=== PATIENT | female | born 1960 | race Caucasian/White ===

== ENCOUNTER 2019-02-07 14:41 | Emergency (ER) | payer OTHER ==
[2019-02-07] MEDS ORDERED: IV NORMAL SALINE 1,000ML 1,000 ML IV SCH (15:02)
[2019-02-07] MEDS ORDERED: ONDANSETRON PF 4 MG/2 ML VIAL. IVP ONE (15:15)
[2019-02-07] MEDS ORDERED: KETOROLAC 30 MG/ML VIAL. IVP ONE (15:15)
[2019-02-07] MEDS ORDERED: HYDROmorphone PF 1 MG/ML DISP.SYRIN IV/SQ PRN (15:15)
[2019-02-07 15:18] LABS: BASO % 1 % (0-3); EOS # 0.1 x10^3/uL (0.0-0.7); EOS % 1 % (0-3); HEMATOCRIT 39.3 % (36.0-47.0); HEMOGLOBIN 13.3 g/dL (12.0-15.5); LYMPH # 2.6 x10^3/uL (1.0-4.8); LYMPH % 28 % (24-48); MEAN CORPUSCULAR HEMOGLOBIN 31 pg (25-35); MEAN CORPUSCULAR HGB CONC 34 g/dL (31-37); MEAN CORPUSCULAR VOLUME 91 fL (79-100); MONO # 0.5 x10^3/uL (0.0-1.1); MONO % 6 % (0-9); NEUT % 65 % (31-73); PLATELET COUNT 307 x10^3/uL (140-400); RED CELL DISTRIBUTION WIDTH 12.4 % (11.5-14.5); WHITE BLOOD COUNT 9.2 x10^3/uL (4.0-11.0)
[2019-02-07 15:33] LABS: ALBUMIN 3.6 g/dL (3.4-5.0); ALBUMIN/GLOBULIN RATIO 0.9 (1.0-1.7); CALCIUM 8.8 mg/dL (8.5-10.1); CREATININE 0.8 mg/dL (0.6-1.0); GFR 73.9; POTASSIUM 3.7 mmol/L (3.5-5.1); TOTAL BILIRUBIN 0.3 mg/dL (0.2-1.0); TOTAL PROTEIN 7.4 g/dL (6.4-8.2)
--- NOTE | 2019-02-07 16:12 | RAD ---
CT ABDOMEN PELVIS WO CONTRAST Indication: Flank pain. Exposure: One or more of the following individualized dose reduction techniques were utilized for this examination: 1. Automated exposure control 2. Adjustment of the mA and/or kV according to patient size 3. Use of iterative reconstruction technique. Comparison: None are available. Technique: No intravenous contrast given. No oral contrast per request. Findings: Evaluation of solid viscera, bowel and vasculature is compromised by the noncontrast technique. Somewhat nodular opacity in the left lung base along the left heart border, measures 9 mm in diameter, series 2, image 6. There has apparently been a right mastectomy. Low-density lesion in the liver measures 15 mm in diameter and 11 Hounsfield units, likely a cyst or other benign etiology. Spleen is not enlarged. The pancreas appears unremarkable. No evidence of adrenal mass. Nonobstructive calculus in the upper pole the right kidney measures 7 mm. Mildly obstructive calculus in the distal right ureter measures 4 mm, mild proximal hydronephrosis and ureteric dilatation. No evidence of left-sided hydronephrosis or calculus. Small low-density in the lower pole the left kidney measures 9 Hounsfield units, most likely a parapelvic cyst. No significant perinephric fatty stranding. No calcified gallstone. Aorta is mildly calcified. No significant lymph node enlargement. No significant small bowel distention. Colonic diverticulosis. No evidence of acute colitis. The appendix is visualized, appears slightly prominent or thick-walled, up to 9 mm thickness without gas and limited. However, no periappendiceal inflammatory type changes. No evidence of pneumoperitoneum or ascites. Urinary bladder demonstrates no significant wall thickening. No evidence of pelvic mass. Degenerative changes of the spine. No evidence of aggressive bone destruction. IMPRESSION: 1. Mildly obstructive 4 mm calculus in the distal right ureter. Additional nonobstructive intrarenal right calculus. 2. 9 mm nodule in the left lung base. This is adjacent to the left heart border, could be pulmonary. As per revised Fleischner guidelines, consider follow-up CT chest in 3 months or PET/CT scan. 3. Small hepatic lesion, most likely a cyst or other benign etiology. 4. The appendix demonstrates slight wall thickening but not definitely abnormal. Given the lack of any adjacent inflammatory stranding, this is probably within normal limits for the patient, but if of concern, could obtain short-term follow-up CT scan. Electronically signed by: Porter Schaffer MD (02/07/2019 4:08 PM) [facility]
--- NOTE | 2019-02-07 16:54 | PHYS DOC ---
Past History Past Medical History: Cancer, Kidney Stones, Other Additional Past Medical Histor: benign brain tumor; melanoma Past Surgical History: Hysterectomy, Oophorectomy, Other Additional Past Surgical Histo: right mastectomy; crainotomy; mediastoscopy; wrist bx Alcohol Use: Occasionally Drug Use: None Adult General Chief Complaint Chief Complaint: FLANK PAIN [facility] HPI Patient is a 58-year-old female who presents with complaint of right-sided flank pain that started a few hours prior to her arrival. She states that she has had no episode of nausea and vomiting. Patient does indicate that she has had a history of kidney stones in the past but they're typically on the left-hand side. She states that this is very similar to prior episodes however. She rates pain at an 8-9 out of 10. She denies any fever. She denies any diarrhea. Patient states that nothing seems to worsen her symptoms.[] Review of Systems Review of Systems Constitutional: Denies fever or chills [] Respiratory: Denies cough or shortness of breath [] Cardiovascular: No additional information not addressed in HPI [] GI: Positive right sided flank/abdominal pain with nausea and vomiting. Denies diarrhea [] : Denies dysuria or hematuria [] Musculoskeletal: Denies back pain or joint pain [] Integument: Denies rash or skin lesions [] Neurologic: Denies headache, focal weakness or sensory changes [] All other systems were reviewed and found to be within normal limits, except as documented in this note. Current Medications Current Medications Current Medications Medications (Trade) Dose Ordered Sig/Compa Start Time Stop Time Status Last Admin Dose Admin Hydromorphone HCl (Dilaudid) 1 mg PRN Q15MIN PRN 02/07/19 15:15 02/08/19 15:14 02/07/19 15:15 1 MG Ketorolac Tromethamine (Toradol 30mg Vial) 30 mg 1X ONCE 02/07/19 15:15 02/07/19 15:16 DC 02/07/19 15:13 30 MG Ondansetron HCl (Zofran) 4 mg 1X ONCE 02/07/19 15:15 02/07/19 15:16 DC 02/07/19 15:13 4 MG Sodium Chloride 1,000 ml @ 1,000 mls/hr Q1H 02/07/19 15:02 02/07/19 16:01 DC 02/07/19 15:02 1,000 MLS/HR Allergies Allergies Allergies Coded Allergies Type Severity Reaction Last Updated Verified codeine Allergy Unknown 02/07/19 Yes Physical Exam Physical Exam Constitutional: Well developed, well nourished, in moderate distress, non-toxic appearance. [] HENT: Normocephalic, atraumatic, bilateral external ears normal, oropharynx moist, no oral exudates, nose normal. [] Eyes: PERRLA, EOMI, conjunctiva normal, no discharge. [] Neck: Normal range of motion, no tenderness, supple, no stridor. [] Cardiovascular: Regular rate and rhythm[] Lungs & Thorax: Bilateral breath sounds clear to auscultation [] Abdomen: Bowel sounds normal, soft, no tenderness. [] Skin: Warm, dry, no erythema, no rash. [] Extremities: No tenderness, no cyanosis, no clubbing, ROM intact, no edema. [] Neurologic: Alert and oriented X 3, no focal deficits noted. [] Current Patient Data Vital Signs Vital Signs Date Time Temp Pulse Resp B/P (MAP) Pulse Ox O2 Delivery O2 Flow Rate FiO2 02/07/19 15:54 16 97 02/07/19 15:53 89 139/96 (110) Room Air 02/07/19 14:45 97.8 Lab Results Laboratory Tests Test 02/07/19 15:05 White Blood Count 9.2 x10^3/uL (4.0-11.0) Red Blood Count 4.30 x10^6/uL (3.50-5.40) Hemoglobin 13.3 g/dL (12.0-15.5) Hematocrit 39.3 % (36.0-47.0) Mean Corpuscular Volume 91 fL (79-100) Mean Corpuscular Hemoglobin 31 pg (25-35) Mean Corpuscular Hemoglobin Concent 34 g/dL (31-37) Red Cell Distribution Width 12.4 % (11.5-14.5) Platelet Count 307 x10^3/uL (140-400) Neutrophils (%) (Auto) 65 % (31-73) Lymphocytes (%) (Auto) 28 % (24-48) Monocytes (%) (Auto) 6 % (0-9) Eosinophils (%) (Auto) 1 % (0-3) Basophils (%) (Auto) 1 % (0-3) Neutrophils # (Auto) 6.0 x10^3uL (1.8-7.7) Lymphocytes # (Auto) 2.6 x10^3/uL (1.0-4.8) Monocytes # (Auto) 0.5 x10^3/uL (0.0-1.1) Eosinophils # (Auto) 0.1 x10^3/uL (0.0-0.7) Basophils # (Auto) 0.0 x10^3/uL (0.0-0.2) Sodium Level 142 mmol/L (136-145) Potassium Level 3.7 mmol/L (3.5-5.1) Chloride Level 105 mmol/L (98-107) Carbon Dioxide Level 25 mmol/L (21-32) Anion Gap 12 (6-14) Blood Urea Nitrogen 13 mg/dL (7-20) Creatinine 0.8 mg/dL (0.6-1.0) Estimated GFR (Cockcroft-Gault) 73.9 BUN/Creatinine Ratio 16 (6-20) Glucose Level 127 mg/dL (70-99) H Calcium Level 8.8 mg/dL (8.5-10.1) Total Bilirubin 0.3 mg/dL (0.2-1.0) Aspartate Amino Transferase (AST) 24 U/L (15-37) Alanine Aminotransferase (ALT) 28 U/L (14-59) Alkaline Phosphatase 86 U/L (46-116) Total Protein 7.4 g/dL (6.4-8.2) Albumin 3.6 g/dL (3.4-5.0) Albumin/Globulin Ratio 0.9 (1.0-1.7) L Lipase 110 U/L (73-393) EKG EKG [] Radiology/Procedures Radiology/Procedures [] Impressions: PROCEDURE: CT ABDOMEN PELVIS WO CONTRAST CT ABDOMEN PELVIS WO CONTRAST Indication: Flank pain. Exposure: One or more of the following individualized dose reduction techniques were utilized for this examination: 1. Automated exposure control 2. Adjustment of the mA and/or kV according to patient size 3. Use of iterative reconstruction technique. Comparison: None are available. Technique: No intravenous contrast given. No oral contrast per request. Findings: Evaluation of solid viscera, bowel and vasculature is compromised by the noncontrast technique. Somewhat nodular opacity in the left lung base along the left heart border, measures 9 mm in diameter, series 2, image 6. There has apparently been a right mastectomy. Low-density lesion in the liver measures 15 mm in diameter and 11 Hounsfield units, likely a cyst or other benign etiology. Spleen is not enlarged. The pancreas appears unremarkable. No evidence of adrenal mass. Nonobstructive calculus in the upper pole the right kidney measures 7 mm. Mildly obstructive calculus in the distal right ureter measures 4 mm, mild proximal hydronephrosis and ureteric dilatation. No evidence of left-sided hydronephrosis or calculus. Small low-density in the lower pole the left kidney measures 9 Hounsfield units, most likely a parapelvic cyst. No significant perinephric fatty stranding. No calcified gallstone. Aorta is mildly calcified. No significant lymph node enlargement. No significant small bowel distention. Colonic diverticulosis. No evidence of acute colitis. The appendix is visualized, appears slightly prominent or thick-walled, up to 9 mm thickness without gas and limited. However, no periappendiceal inflammatory type changes. No evidence of pneumoperitoneum or ascites. Urinary bladder demonstrates no significant wall thickening. No evidence of pelvic mass. Degenerative changes of the spine. No evidence of aggressive bone destruction. IMPRESSION: 1. Mildly obstructive 4 mm calculus in the distal right ureter. Additional nonobstructive intrarenal right calculus. 2. 9 mm nodule in the left lung base. This is adjacent to the left heart border, could be pulmonary. As per revised Fleischner guidelines, consider follow-up CT chest in 3 months or PET/CT scan. 3. Small hepatic lesion, most likely a cyst or other benign etiology. 4. The appendix demonstrates slight wall thickening but not definitely abnormal. Given the lack of any adjacent inflammatory stranding, this is probably within normal limits for the patient, but if of concern, could obtain short-term follow-up CT scan. Electronically signed by: Porter Schaffer MD (02/07/2019 4:08 PM) [facility] DICTATED AND SIGNED BY: PORTER SCHAFFER MD DATE: 02/07/19 8948 CC: BOO CARDOZO Jr., DO; VERNON SHELL DO, MPH ~ Course & Med Decision Making Course & Med Decision Making Pertinent Labs and Imaging studies reviewed. (See chart for details) [] Dragon Disclaimer Dragon Disclaimer This electronic medical record was generated, in whole or in part, using a voice recognition dictation system. Departure Departure: Impression: Primary Impression: Ureterolithiasis Disposition: 01 HOME/RESIDENCE PRIOR TO ADM Condition: STABLE Referrals: VERNON SHELL DO, MPH (PCP) Patient Instructions: Kidney Stones Scripts Ondansetron (ONDANSETRON ODT) 4 Mg Tab.rapdis 1 TAB PO PRN Q6-8HRS PRN for NAUSEA, #12 TAB Prov: BOO CARDOZO Jr. DO 02/07/19 Ketorolac Tromethamine (KETOROLAC TROMETHAMINE) 10 Mg Tablet 1 TAB PO PRN Q6HRS PRN for PAIN, #20 TAB Prov: BOO CARDOZO Jr., DO 02/07/19 Oxycodone Hcl/Acetaminophen (PERCOCET 10-325 MG TABLET ) 1 Each Tablet 1 TAB PO PRN QID PRN for PAIN MDD 4 Tablet(s), #15 TAB 0 Refills Prov: BOO CARDOZO Jr., DO 02/07/19 BOO CARDOZO Jr., DO Feb 07, 2019 16:54
[2019-02-07] MEDS ORDERED: ONDA4TAB12 PO (18:28)
[2019-02-07] MEDS ORDERED: OXYC1TAB22 PO (18:28)
[2019-02-07] MEDS ORDERED: KETO10TA PO (18:28)
[2019-02-07] MEDS ORDERED: TAMSULOSIN 0.4 MG CAP.ER.24H. PO ONE (18:30)
[2019-02-07 18:35] VITALS: BP 156/98
[2019-02-07 18:39] LABS: BILIRUBIN,URINE NEG (NEG); CLARITY,URINE HAZY; COLOR,URINE YELLOW; GLUCOSE,URINE NEG (NEG); UROBILINOGEN,URINE 0.2 mg/dL (0.2 mg/dL)
[2019-02-07 18:40] LABS: BACTERIA,URINE FEW /HPF (0-FEW); HYALINE CASTS, URINE FEW /HPF; NITRITE,URINE NEG (NEG); RBC,URINE >40 /HPF (0-2); SQUAMOUS EPITHELIAL CELL,UR FEW /LPF; WBC,URINE OCC /HPF (0-4)
== END 2019-02-07 20:20 | disposition home or self-care (01) ==
LOC: ER 14:41
DX: N13.2 Hydronephrosis with renal and ureteral calculous obstruction (principal); R11.2 Nausea with vomiting, unspecified; Z87.440 Personal history of urinary (tract) infections; Z88.5 Allergy status to narcotic agent
CPT/HCPCS: 36415; 74176; 80053; 81001; 83690; 85025; 96361; 96374; 96375; 99285; J1170; J1885; J2405; J7030

== ENCOUNTER → 2019-05-04 | Outpatient (CLI) | payer OTHER ==
[~2019-05-04] MED LIST: KETO10TA PO; ONDA4TAB12 PO; OXYC1TAB22 PO
--- NOTE | 2019-05-05 09:52 | RAD ---
Examination: CT CHEST WO CONTRAST History: Lung nodule Comparison/Correlation: None Findings: Axial images of the chest were obtained without contrast. Sagittal and coronal reformatted images were provided. Right mastectomy noted. Multiple superior mediastinal lymph nodes are present especially in the right paratracheal region and in the prevascular space. Lymph nodes also evident along the left lateral aspect of the aortic arch and precarinal region. There is also noted about the left main bronchus proximally. Subcarinal lymph node measures up to 1.5 cm in short axis diameter with minimal calcification within it. Right hilar calcified lymph nodes are present. No infiltrate or pleural effusion. Minimal discoid atelectasis at the lung bases noted. No pulmonary nodule or mass. The left hepatic dome, there is a 1.4 cm diameter hepatic cyst. Bony structures unremarkable. Impression: Multiple superior mediastinal lymph nodes are present. These are not enlarged however. Correlate with prior exams assess stability. Correlate for underlying reactive/inflammatory or other processes. Some of these have lymph nodes and may represent old granulomatous disease or other previous inflammatory process. PQRS Compliance Statement: One or more of the following individualized dose reduction techniques were utilized for this examination: 1. Automated exposure control 2. Adjustment of the mA and/or kV according to patient size 3. Use of iterative reconstruction technique Electronically signed by: Colby Deal MD (05/05/2019 9:49 AM) [facility]
== END | disposition home or self-care (01) ==
LOC: CT 10:52
DX: J98.11 Atelectasis (principal); R91.1 Solitary pulmonary nodule; K76.89 Other specified diseases of liver
CPT/HCPCS: 71250

== ENCOUNTER 2020-08-02 17:14 | Emergency (ER) | payer OTHER ==
[~2020-08-02] VITALS: Ht 162.6 cm; Wt 104.9 kg
[2020-08-02] MEDS ORDERED: ONDANSETRON PF 4 MG/2 ML VIAL. ONE (17:59)
[2020-08-02] MEDS ORDERED: ONDANSETRON PF 4 MG/2 ML VIAL. IVP ONE (18:00)
[2020-08-02] MEDS ORDERED: KETOROLAC 30 MG/ML VIAL. IVP ONE (18:00)
[2020-08-02] MEDS ORDERED: IV NORMAL SALINE 1,000ML 1,000 ML IV ONE (18:00)
--- NOTE | 2020-08-02 18:32 | RAD ---
Exam: CT of abdomen and pelvis without contrast INDICATION: Acute right-sided CVA and flank pain TECHNIQUE: Sequential axial images through the abdomen and pelvis obtained without IV contrast. Sagit sandra and coronal reformatted images were reconstructed from the axial data and reviewed. Exposure: One or more of the following in the visualized dose reduction techniques were utilized for this examination: 1. Automated exposure control 2. Adjustment of the MA and/or KV according to patient size 3. Use of iterative of reconstructive technique Comparisons: 02/07/2019 FINDINGS: Heart size is normal. No pericardial effusion. Strandy opacities at dependent portion lungs likely re presenting atelectasis. No pleural effusion. Evaluation of solid organs limited secondary to noncontrast technique. Liver, spleen, pancreas, gallbladder and adrenals are unremarkable. There is mild to moderate right-sided hydronephrosis and hydroureter with a 7 mm calculus at the dist al right ureter. No other ureteral or renal calculi are identified. Bladder is decompressed not well evaluated. Uterus is absent. No abnormal adnexal mass. Diverticulosis noted in the sigmoid colon without evidence of acute diverticulitis. Small bowel is un remarkable. Appendix is normal. No free intra-abdominal air or fluid. No obstruction. Abdominal aorta has a normal course and caliber. No enlarged intra-abdominal lymph nodes are identified. No suspicious osseous lesions or acute fractures. IMPRESSION: A 7 mm calculus the distal right ureter causing mild to moderate right-sided hydronephrosis. Electronically signed by: Indira Mukherjee MD (08/02/2020 6:30 PM) [id number]
--- NOTE | 2020-08-02 18:49 | PHYS DOC ---
Past History Past Medical History: Cancer, Kidney Stones, Other Additional Past Medical Histor: benign brain tumor; melanoma (REX ADAIR APRN) Past Surgical History: Hysterectomy, Oophorectomy, Other Additional Past Surgical Histo: right mastectomy; crainotomy; mediastoscopy; wrist bx (REX ADAIR APRN) Alcohol Use: Occasionally Drug Use: None (REX ADAIR APRN) Adult General Chief Complaint Chief Complaint: FLANK PAIN HPI HPI Patient is a 60-year-old female presents emergency department complaining of a slow onset of right sided flank pain that radiates around to her right lower groin. Patient states this started at approximately hour and a half prior to arrival while she was at work. Patient states that she has a history of kidney stones, had one 2 years ago with similar onset. Patient states that her pain was a 3/10 pain in a 1-10 pain scale and increased to a 7/10 pain when she arrived to the ER. Patient reports a allergy to codeine and morphine. States her primary care physician is at the [facility], states she sees Dr. Camila marquez through [facility] for kidney stones. Patient states she is on no home medications, states she takes an [id number] MVI. Patient reports some nausea at this time. Denies chest pain, shortness of breath, nasal or chest congestion. Patient denies any other physical complaints or physical concerns. (REX ADAIR APRN) Review of Systems Review of Systems 14 body systems of review of systems have been reviewed. See HPI for pertinent positives and negative responses, otherwise all other systems are negative, nonpertinent or noncontributory. (REX ADAIR APRN) Current Medications Current Medications Current Medications Medications (Trade) Dose Ordered Sig/Compa Start Time Stop Time Status Last Admin Dose Admin Ketorolac Tromethamine (Toradol 30mg Vial) 30 mg 1X ONCE 08/02/20 18:00 08/02/20 18:22 DC 08/02/20 18:15 30 MG Ondansetron HCl (Zofran) 4 mg 1X ONCE 08/02/20 18:00 08/02/20 18:22 DC 08/02/20 18:18 4 MG Sodium Chloride 1,000 ml @ 1,000 mls/hr 1X ONCE 08/02/20 18:00 08/02/20 18:59 08/02/20 18:18 1,000 MLS/HR (REX ADAIR APRN) Allergies Allergies Allergies Coded Allergies Type Severity Reaction Last Updated Verified codeine Allergy Unknown 02/07/19 Yes (REX ADAIR APRN) Physical Exam Physical Exam Constitutional: Well developed, well nourished, patient is in acute distress, non-toxic appearance. Patient patient is pacing around the room holding her right flank area. HENT: Normocephalic, atraumatic, bilateral external ears normal, oropharynx moist, no oral exudates, nose normal. Eyes: PERRLA, EOMI, conjunctiva normal, no discharge. Neck: Normal range of motion, no tenderness, supple, no stridor. Cardiovascular:Heart rate regular rhythm, no murmur, heart sounds S1-S2 to auscultation. Lungs & Thorax: Bilateral breath sounds clear to auscultation no adventitious lung sounds appreciated. Abdomen: Bowel sounds normal, soft, no tenderness, no masses, no pulsatile masses. Skin: Warm, dry, no erythema, no rash. Back: No tenderness, no left-sided CVA tenderness, positive right-sided CVA tenderness. Extremities: No tenderness, no cyanosis, no clubbing, ROM intact, no edema. Neurologic: Alert and oriented X 3, normal motor function, normal sensory function, no focal deficits noted. Psychologic: Affect normal, judgement normal, mood normal. (REX ADAIR APRN) Current Patient Data Vital Signs Vital Signs Date Time Temp Pulse Resp B/P (MAP) Pulse Ox O2 Delivery O2 Flow Rate FiO2 08/02/20 17:37 97.1 120 18 164/119 (134) 97 Room Air Lab Results Laboratory Tests Test 08/02/20 17:57 08/02/20 18:08 Urine Collection Type Unknown Urine Color Myla Urine Clarity Cloudy Urine pH 5.0 Urine Specific [place] >=1.030 Urine Protein 100 mg/dl Urine Glucose (UA) Neg mg/dL Urine Ketones (Stick) Neg mg/dL Urine Blood Large Urine Nitrite Neg Urine Bilirubin Neg Urine Urobilinogen Dipstick 0.2 mg/dL Urine Leukocyte Esterase Neg Urine RBC >40 /HPF Urine WBC Rare /HPF Urine Squamous Epithelial Cells Few /LPF Urine Bacteria 0 /HPF Urine Mucus Slight /LPF Urine Yeast Present /HPF White Blood Count 9.8 x10^3/uL Red Blood Count 4.27 x10^6/uL Hemoglobin 13.5 g/dL Hematocrit 39.4 % Mean Corpuscular Volume 92 fL Mean Corpuscular Hemoglobin 32 pg Mean Corpuscular Hemoglobin Concent 34 g/dL Red Cell Distribution Width 12.8 % Platelet Count 328 x10^3/uL Neutrophils (%) (Auto) 64 % Lymphocytes (%) (Auto) 28 % Monocytes (%) (Auto) 6 % Eosinophils (%) (Auto) 2 % Basophils (%) (Auto) 1 % Neutrophils # (Auto) 6.3 x10^3uL Lymphocytes # (Auto) 2.7 x10^3/uL Monocytes # (Auto) 0.6 x10^3/uL Eosinophils # (Auto) 0.2 x10^3/uL Basophils # (Auto) 0.1 x10^3/uL Sodium Level 143 mmol/L Potassium Level 4.0 mmol/L Chloride Level 107 mmol/L Carbon Dioxide Level 27 mmol/L Anion Gap 9 Blood Urea Nitrogen 16 mg/dL Creatinine 0.8 mg/dL Estimated GFR (Cockcroft-Gault) 73.4 BUN/Creatinine Ratio 20 Glucose Level 140 mg/dL Calcium Level 9.3 mg/dL Total Bilirubin Pending Aspartate Amino Transf (AST/SGOT) Pending Alanine Aminotransferase (ALT/SGPT) Pending Alkaline Phosphatase Pending Total Protein Pending Albumin Pending Albumin/Globulin Ratio Pending Current Medications Medications (Trade) Dose Ordered Sig/Compa Route PRN Reason Start Time Stop Time Status Last Admin Dose Admin Ondansetron HCl (Zofran) 4 mg STK-MED ONCE .ROUTE 08/02/20 17:59 08/02/20 17:59 DC Ondansetron HCl (Zofran) 4 mg 1X ONCE IVP 08/02/20 18:00 08/02/20 18:22 DC 08/02/20 18:18 Sodium Chloride 1,000 ml @ 1,000 mls/hr 1X ONCE IV 08/02/20 18:00 08/02/20 18:59 DC 08/02/20 18:18 Ketorolac Tromethamine (Toradol 30mg Vial) 30 mg 1X ONCE IVP 08/02/20 18:00 08/02/20 18:22 DC 08/02/20 18:15 Tamsulosin HCl (Flomax) 0.4 mg 1X ONCE PO 08/02/20 20:15 08/02/20 20:19 DC 08/02/20 20:13 Tamsulosin HCl (Flomax) 0.4 mg STK-MED ONCE PO 08/02/20 20:12 08/02/20 20:19 DC (REX ADAIR APRN) EKG EKG [] (REX ADAIR APRN) Radiology/Procedures Radiology/Procedures PATIENT: ZEV WILEY ACCOUNT: [id number] : 1960 LOCATION: ER AGE: 60 SEX: F EXAM STATUS: REG ER ORD. PHYSICIAN: REX ADAIR APRN REASON: ACUTE RT SIDED CVA AND FLANK PAIN PROCEDURE: CT ABDOMEN PELVIS WO CONTRAST Exam: CT of abdomen and pelvis without contrast INDICATION: Acute right-sided CVA and flank pain TECHNIQUE: Sequential axial images through the abdomen and pelvis obtained without IV contrast. Sagittal and coronal reformatted images were reconstructed from the axial data and reviewed. Exposure: One or more of the following in the visualized dose reduction techniques were utilized for this examination: 1. Automated exposure control 2. Adjustment of the MA and/or KV according to patient size 3. Use of iterative of reconstructive technique Comparisons: 02/07/2019 FINDINGS: Heart size is normal. No pericardial effusion. Strandy opacities at dependent portion lungs likely representing atelectasis. No pleural effusion. Evaluation of solid organs limited secondary to noncontrast technique. Liver, spleen, pancreas, gallbladder and adrenals are unremarkable. There is mild to moderate right-sided hydronephrosis and hydroureter with a 7 mm calculus at the distal right ureter. No other ureteral or renal calculi are identified. Bladder is decompressed not well evaluated. Uterus is absent. No abnormal adnexal mass. Diverticulosis noted in the sigmoid colon without evidence of acute diverticulitis. Small bowel is unremarkable. Appendix is normal. No free intra- abdominal air or fluid. No obstruction. Abdominal aorta has a normal course and caliber. No enlarged intra-abdominal lymph nodes are identified. No suspicious osseous lesions or acute fractures. IMPRESSION: A 7 mm calculus the distal right ureter causing mild to moderate right-sided hydronephrosis. Electronically signed by: Indira Morejon MD (08/02/2020 6:30 PM) [id number] DICTATED AND SIGNED BY: INDIRA MOREJON MD DATE: 08/02/201822 CC: REX ADAIR APRN; [facility]; EMERGENCY,DEPARTMENT ~MTH0 0 (REX ADAIR APRN) Heart Score C/O Chest Pain: No Risk Factors: Risk Factors: DM, Current or recent (<one month) smoker, HTN, HLP, family history of CAD, obesity. Risk Scores: Risk Factors: DM, Current or recent (<one month) smoker, HTN, HLP, family history of CAD, obesity. (REX ADAIR APRN) Course & Med Decision Making Course & Med Decision Making Pertinent Labs and Imaging studies reviewed. (See chart for details) 60-year-old female, vital signs reviewed, presents emergency department concerning right flank pain which she feels is a another kidney stone, patient has similar episode 2 years ago. Physical examination consistent with possible kidney stone versus other intra-abdominal process. Will order CT scan abdomen pelvis without contrast, 1 L IV normal saline, 30 of Toradol, 4 mg Zofran for nausea. Urinalysis assay The patient's urine was not infected, the patient's serum labs were unremarkable, the patient CT concerning for 7 mm distal ureter stone with mild t o moderate hydronephrosis of the right kidney. Called and discussed case with patient's primary urologist Dr. ABAD'S partner Dr. James Mathur who recommended patient be discharged home and have her show up at his office at 8 AM for consultation. Upon reevaluation of the patient, patient states she is pain-free. Patient is amendable to plan of following up at her primary care urologist office at 8 AM for evaluation. Will give dose of Flomax prior to DC from ED. Will prescribe Flomax, ibuprofen, hydrocodone for home medications. Patient gave verbal understanding of discharge home instructions, follow-up with urologist office at 8 AM tomorrow, return to ER precautions or concerns, home antibiotic use, patient was thankful, remains pain-free at discharge, patient is in no apparent distress at discharge and is nontoxic in appearance, patient was discharged home without incident. (REX ADAIR APRN) Dragon Disclaimer Dragon Disclaimer This electronic medical record was generated, in whole or in part, using a voice recognition dictation system. (REX ADAIR APRN) Attending Co-Sign The patient was seen and interviewed as well as examined at the bedside. The chart was reviewed. The case was discussed. Agree with the plan of care. (NISREEN WALL DO) Departure Departure: Impression: Primary Impression: Kidney stone on right side Additional Impression: Hydronephrosis Disposition: 01 HOME / SELF CARE / HOMELESS Condition: GOOD Referrals: [facility] (PCP) Patient Instructions: Kidney Stones Additional Instructions: You were seen in the emergency department for right flank pain. You have a 7 mm kidney stone on the right distal ureter with a hydronephrosis of the right kidney. I have called and discussed this case with urologist James Mathur. Dr. Mathur recommended you show up at the urology office at 8 AM for consult. I am prescribing you Flomax, ibuprofen, and [place] for pain. Please return to the emergency department for worsening symptoms or other concerns. EMERGENCY DEPARTMENT GENERAL DISCHARGE INSTRUCTIONS Thank you for coming to [facility] (ED) today and trusting us with you care. We trust that you had a positivie experience in our Emergency Department. If you wish to speak to the department management, you may call the director at [phone]. YOUR FOLLOW UP INSTRUCTIONS ARE FOLLOWS: 1. Do you have a private Doctor? If you do not have a private doctor, please ask for a resource list of physicians or clinics that may be able to assist you with follow up care. 2. The Emergency Physician has interpreted your x-rays. The X-Ray specialist will also review them. If there is a change in the findings, you will be notified in 48 hours when at all possible. 3. A lab test or culture has been done, your results will be reviewed and you will be notified if you need a change in treatment. ADDITIONAL INSTRUCTIONS AND INFORMATION: 1. Your care today has been supervised by a physician who is specially trained in emergency care. Many problems require more than one evaluation for a complete diagnosis and treatment. We recommend that you schedule your follow up appointment as recommended to ensure complete treatment of you illness or injury. If you are unable to obtain follow up care and continue to have a problem, or if your condition worsens, we recommend that you return to the ED. 2. We are not able to safely determine your condition over the phone nor are we able to give sound medical advice over the phone. For these safety reasons, if you call for medical advice we will ask you to come to the ED for further evaluation. 3. If you have any questions regarding these discharge instructions please call the ED at [phone]. SAFETY INFORMATION: In the interest of safety, wellness, and injury prevention; we encourage you to wear your sealbelt, if you smoke; quite smoking, and we encourage family to use a protective helmet for bicycling and other sporting events that present an increased risk for head injury. IF YOUR SYMPTOMS WORSEN OR NEW SYMPTOMS DEVELOP, OR YOU HAVE CONCERNS ABOUT YOUR CONDITION; OR IF YOUR CONDITION WORSENS WHILE YOU ARE WAITING FOR YOUR FOLLOW UP APPOINTMENT; EITHER CONTACT YOUR PRIMARY CARE DOCTOR, THE PHYSICIAN WHOSE NAME AND NUMBER YOU WERE GIVEN, OR RETURN TO THE ED IMMEDIATELY. Scripts Ondansetron (ONDANSETRON ODT) 4 Mg Tab.rapdis 1 TAB PO PRN Q6-8HRS for nausea, #16 TAB 0 Refills Prov: REX ADAIR REJECTED ITEMS CLERK 08/02/20 Tamsulosin Hcl (FLOMAX) 0.4 Mg Cap.er.24h 0.4 MG PO DAILY for KIDNEY STONE, #5 CAP.SR 0 Refills Take 30 minutes after the same meal each day. Prov: REX ADAIR REJECTED ITEMS CLERK 08/02/20 Hydrocodone Bit/Acetaminophen (HYDROCODONE-APAP 5-325 ) 1 Each Tablet 1 TAB PO PRN Q6HRS PRN for PAIN, #15 TAB 0 Refills Prov: REX ADAIR APRN 08/02/20 Ibuprofen (IBUPROFEN) 600 Mg Tablet 600 MG PO TID PRN PRN for PAIN, #20 TAB 0 Refills Prov: REX ADAIR REJECTED ITEMS CLERK 08/02/20 Problem Qualifiers Additional Impression: Hydronephrosis Hydronephrosis type: with renal calculous obstruction Qualified Codes: N13.2 - Hydronephrosis with renal and ureteral calculous obstruction REX ADAIR APRN August 02, 2020 18:49 NISREEN WALL DO August 02, 2020 23:45
[2020-08-02 19:21] LABS: BACTERIA,URINE 0 /HPF (0-FEW); BILIRUBIN,URINE NEG (NEG); CLARITY,URINE CLOUDY; COLOR,URINE AMBER; GLUCOSE,URINE NEG (NEG); NITRITE,URINE NEG (NEG); RBC,URINE >40 /HPF (0-2); SQUAMOUS EPITHELIAL CELL,UR FEW /LPF; UROBILINOGEN,URINE 0.2 mg/dL (0.2 mg/dL); WBC,URINE RARE /HPF (0-4)
[2020-08-02 19:22] LABS: YEAST,URINE PRESENT /HPF
[2020-08-02] MEDS ORDERED: HYDR-2155 PO (20:05)
[2020-08-02] MEDS ORDERED: TAMS0.4C97 PO (20:05)
[2020-08-02] MEDS ORDERED: IBUP600T16 PO (20:05)
[2020-08-02] MEDS ORDERED: ONDA4TAB12 PO (20:08)
[2020-08-02] MEDS ORDERED: TAMSULOSIN 0.4 MG CAP.ER.24H. PO ONE ×2 (20:12→20:15)
[2020-08-02 20:16] VITALS: BP 148/70
[2020-08-02 22:09] LABS: BASO # 0.1 x10^3/uL (0.0-0.2); BASO % 1 % (0-3); CALCIUM 9.3 mg/dL (8.5-10.1); CREATININE 0.8 mg/dL (0.6-1.0); EOS # 0.2 x10^3/uL (0.0-0.7); EOS % 2 % (0-3); GFR 73.4; HEMATOCRIT 39.4 % (36.0-47.0); HEMOGLOBIN 13.5 g/dL (12.0-15.5); LYMPH # 2.7 x10^3/uL (1.0-4.8); LYMPH % 28 % (24-48); MEAN CORPUSCULAR HEMOGLOBIN 32 pg (25-35); MEAN CORPUSCULAR HGB CONC 34 g/dL (31-37); MEAN CORPUSCULAR VOLUME 92 fL (79-100); MONO # 0.6 x10^3/uL (0.0-1.1); MONO % 6 % (0-9); NEUT # 6.3 x10^3uL (1.8-7.7); NEUT % 64 % (31-73); PLATELET COUNT 328 x10^3/uL (140-400); RED BLOOD COUNT 4.27 x10^6/uL (3.50-5.40); RED CELL DISTRIBUTION WIDTH 12.8 % (11.5-14.5); WHITE BLOOD COUNT 9.8 x10^3/uL (4.0-11.0)
[2020-08-02 22:17] LABS: ALBUMIN 3.9 g/dL (3.4-5.0); ALBUMIN/GLOBULIN RATIO 1.1 (1.0-1.7); TOTAL BILIRUBIN 0.3 mg/dL (0.2-1.0); TOTAL PROTEIN 7.4 g/dL (6.4-8.2)
== END 2020-08-02 20:18 | disposition home or self-care (01) ==
LOC: ER 17:14
DX: N20.0 Calculus of kidney (principal); N13.30 Unspecified hydronephrosis; Z90.710 Acquired absence of both cervix and uterus
CPT/HCPCS: 36415; 74176; 80053; 81001; 85025; 96361; 96374; 96375; 99284; J1885; J2405; J7030